=== PATIENT | female | born 1955 | race Two or more races ===

== ENCOUNTER → 2018-07-09 | Day surgery (SDC) | payer OTHER ==
[~2018-07-09] MED LIST: ANUCORT-HC25 MG/SUPP RC; ANUSOL-HC25 MG/SUPP RC; CLEOCIN HCL150 MG PO; IBUPROFEN800 MG PO; KEFLEX; LEVAQUIN500 MG PO; ORPH100T PO; PERCOCET 5/321 UDTAB PO; SYNTHROID137 MCG PO; TORADOL10 MG PO; XYLOCAINE JELLY 221 MM
== END | disposition home or self-care (01) ==
LOC: CIR.AMB 08:24
DX: D24.1 Benign neoplasm of right breast (principal); D24.2 Benign neoplasm of left breast

== ENCOUNTER 2024-10-12 17:21 | Emergency (ER) | payer OTHER ==
[~2024-10-12] VITALS: Ht 167.6 cm; Wt 100.7 kg
[2024-10-12] MEDS ORDERED: CEFTRIAXONE SODIUM 1,000 MG VIAL IM STA (18:44)
[2024-10-12] MEDS ORDERED: HYDROCODONE/CHLORPHEN P-STIREX 5 ML ML PO STA (18:45)
[2024-10-12] MEDS ORDERED: KETOROLAC TROMETHAMINE 60 MG VIAL IM STA (18:45)
== END 2024-10-12 19:05 | disposition home or self-care (01) ==
LOC: ER 17:24
DX: J06.9 Acute upper respiratory infection, unspecified (principal); R09.81 Nasal congestion
CPT/HCPCS: 96372; 99282; J0696; J1885